=== PATIENT | male | born 1960 | race Caucasian/White ===

== ENCOUNTER 2016-06-30 14:49 | Inpatient (IN) ==
[2016-06-30] MEDS ORDERED: NALOXONE 0.4 MG/ML VIAL IV STA (15:18)
[2016-06-30] MEDS ORDERED: NALOXONE 0.4 MG/ML VIAL ONE (15:21)
--- NOTE | 2016-06-30 15:47 | XRay Report ---
XR chest 1V portable Indication: Cough Comparison: 27 September 2012 Findings: The heart and mediastinum are within normal limits in size and configuration with cardiac surgery changes. The pulmonary vascularity is normal in caliber. No lung infiltrates, effusions, pneumothorax or other abnormality is demonstrated. Impression: No acute cardiopulmonary disease. PROCEDURE INTERPRETED AT [facility] DEPARTMENT OF RADIOLOGY Final Report Signed by: Dr. Talon Byrnes
--- NOTE | 2016-06-30 15:47 | Emergency Department Note ---
Rohit Mueller Gwan, am scribing for, and in the presence of, Gasper Martinez MD 15:26 . Michelle Mueller James D, MD, personally performed the services described in this documentation, ascribed by Dominga Bee in my presence, and it is both accurate and complete [id number] . Arrival - Arrival Chief Complaint: Overdose Stated Complaint: overdose ED Nursing Triage Note: Brought in by EMS c/o altered LOC r/t possible overdose. Patient had #120 Oxycodone filled on 06/22/16, 22 pills left in bottle today. Home health nurse reports that patient had 40 pills yesterday. Patient has also taken an unknown amount of Valium. Awake, but drowsy. Mode of Arrival: Stretcher Source: EMS, Old Records Reviewed, RN Notes Reviewed - History of Present Illness HPI Narrative: Patient is a 56 y/o male who presents to the ED via EMS for further evaluation of drug overdose. Patient was last seen in ED 06/28/2016 for similar reason. Last visit notes that pt is being followed by pain management physician Dr. Mccarty in [place]. Nurses report that pt has 120 Oxycodone filled on 2016 and today he has 24 pills left in a bottle that originally had 60 pills. Home health nurse reports that pt has also been taking unknown amount of Valium. During exam pt is lethargic but awake. Pt has a PMHx of anxiety Disorder , brain aneurysm, seizures, CVA, dyslipidemia and valve replacement. Allergies/Adverse Reactions: Allergies Allergy/AdvReac Type Severity Reaction Status Date / Time Cyclobenzaprine Allergy ITCHING Verified 10/28/14 19:39 [From Flexeril] hydroxyzine [From Vistaril] Allergy Unknown/Unable Verified 06/28/16 14:53 to obtain ketorolac [From Toradol] Allergy ITCHING Verified 10/28/14 19:39 Home Medications: Home Medications Medication Instructions Recorded Confirmed Type tiZANidine [Zanaflex] 4 mg PO Q12HR PRN 10/28/14 06/30/16 History Atorvastatin Calcium [Atorvastatin 80 mg PO QPM 06/30/16 06/30/16 History Calcium] Buspirone HCl 10 mg PO BID 06/30/16 06/30/16 History Carvedilol [Coreg] 25 mg PO BID 06/30/16 06/30/16 History Oxycodone HCl 20 mg PO Q6HR 06/30/16 06/30/16 History Phenytoin Sodium Extended 100 mg PO BID 06/30/16 06/30/16 History [Phenytoin Sodium Extended] Topiramate [Topiramate] 200 mg PO BID 06/30/16 06/30/16 History Valsartan 160 mg PO DAILY 06/30/16 06/30/16 History lamoTRIgine [Lamotrigine Tab] 50 mg PO BID 06/30/16 06/30/16 History Review of System - Review of System ROS unobtainable: due to mental status Medical,Surgical,& Family Hx - Medical History Cardio: History of: Cardiac Dysrhythmia (AFIB), Hypertension, Valvular Heart Disease (aorta valve replaced) Psychological: History of: Anxiety Disorders Neurology: History of: Brain Aneurysm, Cerebrovascular Accident, Seizures Endocrine: History of: Dyslipidemia - Surgical History Cardiac Surgeries: Sugical HX of: Cardiac Surgery (valve replacement) Neurologic Surgeries: Surgical HX of: Brain Aneurysm - Social History Smoking Status: Smoker, status unknown Frequency of Alcohol Use: None Type of Drug Use: None Exam Physical Examination: GENERAL: This is a ill-appearing lethargic white male in no apparent distress. VITAL SIGNS: HEENT: Head is normocephalic and atraumatic. Pupils are equally round and reactive to light. Extraocular movement are intact. Oropharynx is benign with moist mucous membranes. NECK: Neck is soft and supple without tenderness. There are no masses. There is no lymphadenopathy. LUNGS: Lungs are clear to auscultation bilaterally. Chest rises symmetrically. There is no chest wall tenderness. CV: Heart is regular rate and rhythm without murmurs, rubs, or gallops. ABDOMEN: Abdomen is soft, non-tender to palpation. There are no abnormal masses palpated. There is no organomegaly. Bowel sounds are present and active. SKIN: Skin is warm and dry. No rash. EXTREMITIES: Patient has full range of motion without tenderness. There is no pedal edema. NEUROLOGIC: Awake and lethargic. Cranial nerves II through XII are grossly intact. There are no motorsensory deficits. PSYCHIATRIC: Normal affect. Normal mood. Vital Signs: Vital Signs Temperature 98.4 F 07/01/16 07:00 Pulse Rate 55 L 07/01/16 08:00 Respiratory Rate 14 05/11/17 08:00 Blood Pressure 99/58 07/01/16 08:00 O2 Sat by Pulse Oximetry 97 07/01/16 08:00 Course Course Narrative: Patient was given 2 Amps of Narcan IV upon arrival to the emergency department and immediately increased his O2 sat and began talking and cursing. - Consultations Consultation #1: Discussed with hospitalist. Patient was admitted to their service. Time: 16:50 Results - Labs CBC & BMP: 07/01/16 07:28 07/01/16 07:28 Lab Results: I have reviewed the patients labs Labs: Laboratory Tests 06/30/16 06/30/16 06/30/16 15:17 16:38 16:38 WBC 9.4 Hgb 15.9 Hct 49.2 Plt Count 225 ABG pH 7.302 L ABG pCO2 47.5 ABG pO2 61.4 L ABG O2 Saturation 90.3 L Sodium 143 Potassium 4.4 Chloride 107 Carbon Dioxide 28 Anion Gap 12.4 BUN 25 H Creatinine 2.30 H Glucose 110 H Urine pH Ur Specific [place] Urine RBC Urine WBC Urine Opiates Screen Acetaminophen Ur Barbiturates Screen Phenytoin Ur Phencyclidine Scrn U Amphetamine/Methamph U Benzodiazepines Scrn U Cocaine Metab Screen U Cannabinoids Screen 06/30/16 06/30/16 06/30/16 16:38 16:56 16:56 WBC Hgb Hct Plt Count ABG pH ABG pCO2 ABG pO2 ABG O2 Saturation Sodium Potassium Chloride Carbon Dioxide Anion Gap BUN Creatinine Glucose Urine pH 5.0 Ur Specific [place] 1.018 Urine RBC 16 Urine WBC 304 Urine Opiates Screen Positive H Acetaminophen < 2.0 L Ur Barbiturates Screen Negative Phenytoin 1.4 L Ur Phencyclidine Scrn Negative U Amphetamine/Methamph Negative U Benzodiazepines Scrn Positive H U Cocaine Metab Screen Negative U Cannabinoids Screen Negative Only labs from 06/30/2016 are to be considered for the purposes of this note. Labs from any other date have been entered in this note automatically by the electronic medical record. - Diagnostic Findings Procedure: Chest x-ray: report reviewed by me, image reviewed by me (No acute cardiopulmonary disease. Old median sternotomy.), CT: image reviewed by me, report reviewed by me (CT head: No acute interval change. Patient does have an area of encephalomalacia involving the right parietal occipital area.) Disposition Clinical Impression: Oxycodone overdose, Seizure disorder, Prior craniotomy with AVM, Noncompliance with Dilantin Case discussed with: patient Disposition: Still a Patient Condition: Stable Time of Disposition: 16:31
--- NOTE | 2016-06-30 16:19 | CT Report ---
CT brain Indication: Altered mental status Comparison: 28 Jun 2016 Technique: Axial CT imaging of the brain is performed without contrast with 3 mm increments. Findings: No evidence of hemorrhage, mass mass effect midline shift or acute infarct seen. There is moderate to severe diffuse cerebral atrophy. There are areas of decreased density seen within the white matter. More focal decreased density and volume loss is seen involving the majority of the right parietal temporal and occipital lobes similar to previous study. Multiple metallic densities are present in the medial right occipital lobe area from previous vascular surgeries. Otherwise the brain parenchyma attenuation and differentiation appears within normal limits. The ventricles and cisterns are normal in caliber. Craniotomy changes are present in the right occipital area similar to previous. No other cranial or skull base abnormality is identified. Impression: No evidence of acute process or interval change. This CT exam was performed using one or more the following dose reduction techniques: Automated exposure control, adjustment of the MA and/or KV according to patient size, or use of iterative reconstruction technique. PROCEDURE INTERPRETED AT [facility] DEPARTMENT OF RADIOLOGY Final Report Signed by: Dr. Talon Byrnes
[2016-06-30 16:46] LABS: Basophils % 0.3 % (0.0-0.8); Eosinophils # 0.3 10*3/uL (0.0-0.87); Eosinophils % 3.5 % (0.00-10.9); Hematocrit 49.2 VOL% (42.0-52.0); Hemoglobin 15.9 GM/DL (14.0-18.0); Immature Granulocytes % 0.2 %; Immature Granulocytes Absolute 0.02 #; Lymphocytes % 10.3 % (21.2-54.2); Mean Corpuscular HGB Conc 32.3 GM/DL (32-36); Mean Corpuscular Hemoglobin 30 PG (27-34); Mean Corpuscular Volume 92.8 FL (87-102); Mean Platelet Volume 11.1 FL (9.6-12.0); Monocytes # 0.3 10*3/uL (0.11-0.8); Monocytes % 3.5 % (1.7-12.7); Neutrophils # 7.7 10*3/uL (1.4-7.4); Neutrophils % 82.2 % (38.7-73.9); Platelet Count 225 T/CUMM (130-400); Red Cell Distribution Width 13.6 % (9.3-17.3); White Blood Count 9.4 T/CUMM (4-12)
[2016-06-30] MEDS ORDERED: SODIUM CHLORIDE 0.9% 1,000 ML IV STA (16:50)
[2016-06-30 17:07] LABS: Acetaminophen < 2.0 UG/ML (10-30); Phenytoin (Dilantin) 1.4 UG/ML (10-20)
[2016-06-30 17:09] LABS: Albumin 3.8 G/DL (3.4-5.0); Bilirubin,Total 0.4 MG/DL (0.2-1.0); Calcium 9.5 MG/DL (8.5-10.1); Potassium 4.4 MMOL/L (3.5-5.1); Total Protein 7.4 G/DL (6.4-8.3)
[2016-06-30 17:22] LABS: Apearance,Urine CLOUDY (Clear); Bilirubin,Urine Negative (Negative); Blood, Urine Negative (Negative); Glucose,Urine (UA) Negative (Negative); Hyaline Casts,Urine 13 /LPF (0-3); Ketones,Urine 5 mg/dL (Negative); Mucus,Urine Occasional /LPF (Occasional); Nitrite,Urine Negative (Negative); Protein,Urine 30 MG/DL; RBC,Urine 16 /HPF (0-4); Squamous Epithelial Cell,Urine Occasional /HPF (0-10); Urine Specific Gravity 1.018 (1.001-1.035); Urine Urobilinogen < 2.0 EU/DL (0.2-1.0); WBC,Urine 304 /HPF (0-6)
[2016-06-30 17:23] LABS: Urine Color Dark yellow (Yellow)
[2016-06-30 17:25] LABS: Barbiturates Screen,Urine Negative (Negative); Benzodiazepines Screen,Urine Positive (Negative); Cannabinoid Screen,Urine Negative (Negative); Opiate Screen,Urine Positive (Negative); Phencyclidine Screen,Urine Negative (Negative)
--- NOTE | 2016-06-30 17:37 | Hospitalist History & Physical ---
Assessment and Plan (1) Acute kidney injury Status: Acute Current Visit: Yes (2) Dehydration Status: Acute Current Visit: Yes (3) Drug overdose Status: Acute Current Visit: No (4) Drug abuse Status: Acute Current Visit: No (5) Seizure disorder Status: Acute Assessment and plan: Our plan for this patient will be admission to ICU. He needs close observation. I do not feel that this was a overdose associated with morning to harm self but although was unintentional overdose. Can continue home meds as appropriate and when patient is awake and alert enough he can be discharged after receiving IV fluids. Current Visit: Yes History of Present Illness Chief complaint: Decreased level of consciousness History of present illness: Mr. Whittington is a 56 year old male with past medical history significant for anxiety disorders brain aneurysm dyslipidemia hypertension valvular heart disease who presented to our ER for evaluation of unintentional drug overdose. Apparently patient is a pain clinic patient followed by Dr. Anastacio Jaimes. He reportedly had 120 oxycodone field on June 22. Today he has 24 pills left in the bottle that originally had 60. Home health nurse reports that he had been taking also unknown quantity of Valium. Patient had EMS called and was brought to our hospital he was lethargic and received 2 doses of Narcan. By the time I saw him he was awake. Patient was not real descriptive that what was going on other than saying he thought he was sick. To me he denied taking pain medicine. I was consulted to admit the patient through the emergency room. Home Medications Medication Instructions Recorded Confirmed Type Amitriptyline [Elavil] 25 mg PO BEDTIME 10/28/14 10/28/14 History Atorvastatin [Lipitor] 10 mg PO BEDTIME 10/28/14 10/28/14 History Butalbital/Acet/Caff 50-325-40 1 tablet PO Q6H PRN #20 tablet 10/28/14 Rx [Fioricet] Diazepam Tab [Valium Tab] 10 mg PO DAILY 10/28/14 10/28/14 History Diclofenac Sodium Tab [Voltaren] 50 mg PO TID 10/28/14 10/28/14 History Diltiazem Tab [Cardizem Tab] 90 mg PO BID 10/28/14 10/28/14 History FLUoxetine [PROzac] 10 mg PO DAILY 10/28/14 10/28/14 History Gabapentin Cap/Tab [Neurontin 300 mg PO DAILY 10/28/14 10/28/14 History Cap/Tab] HydrOXYzine PAMOATE CAP [Vistaril 25 mg PO TID 10/28/14 10/28/14 History Cap] Hydrocodone/Acetaminophen 1 tablet PO Q6-8H PRN 10/28/14 10/28/14 History [Hydrocodon-Acetaminophen 5-325] Lisinopril [Prinivil] 20 mg PO DAILY 10/28/14 10/28/14 History Phenytoin Sodium Extended 300 mg PO DAILY 10/28/14 10/28/14 History Topiramate [Topamax] 50 mg PO DAILY 10/28/14 10/28/14 History hydroCHLOROthiazide 25 mg PO DAILY 10/28/14 10/28/14 History [Hydrochlorothiazide] rOPINIRole [Requip] 4 mg PO BEDTIME 10/28/14 10/28/14 History tiZANidine [Zanaflex] 4 mg PO TID 10/28/14 10/28/14 History Allergies Allergy/AdvReac Type Severity Reaction Status Date / Time Cyclobenzaprine Allergy ITCHING Verified 10/28/14 19:39 [From Flexeril] hydroxyzine [From Vistaril] Allergy Unknown/Unable Verified 06/28/16 14:53 to obtain ketorolac [From Toradol] Allergy ITCHING Verified 10/28/14 19:39 Medical,Surgical,& Family Hx - Medical History Cardio: History of: Cardiac Dysrhythmia (AFIB), Hypertension, Valvular Heart Disease (aorta valve replaced) Psychological: History of: Anxiety Disorders Neurology: History of: Brain Aneurysm, Cerebrovascular Accident, Seizures Endocrine: History of: Dyslipidemia - Surgical History Cardiac Surgeries: Sugical HX of: Cardiac Surgery (valve replacement) Neurologic Surgeries: Surgical HX of: Brain Aneurysm - Social History Smoking Status: Smoker, status unknown Frequency of Alcohol Use: None Type of Drug Use: None ROS unobtainable: due to mental status Exam - Constitutional Vitals: Period Temp Pulse Resp BP Sys/Godinez Pulse Ox Last 24 Hr 98.2 F 89 22 126/76 89 General appearance: normal weight, disheveled, other (Continues trying to get off the gurney) - Head Head exam: Present: normal inspection - Eye Pupils: Present: constricted - ENT ENT exam: Present: normal exam - Neck Neck exam: Present: normal inspection - Respiratory Respiratory exam: Present: clear to auscultation bilaterally - Cardiovascular Cardiovascular exam: Present: regular rate and rhythm - GI/Abdominal GI/Abdominal exam: Present: normal bowel sounds - Extremities Exam Extremities exam: Present: normal inspection - Back Exam Back exam: Present: normal inspection - Neurological Exam Neurological exam: Present: altered - Psychiatric Psychiatric exam: Present: agitated - Skin Skin exam: Present: normal color Results - Labs CBC & BMP: 06/30/16 16:38 06/30/16 16:38
[2016-06-30] MEDS ORDERED: ACETAMINOPHEN 325 MG TABLET PO PRN (17:40)
[2016-06-30] MEDS ORDERED: ONDANSETRON 4 MG/2 ML VIAL IV PRN (17:40)
[2016-06-30] MEDS ORDERED: ALBUTEROL 2.5 MG/3 ML NEB RESP TX PRN (17:40)
[2016-06-30 17:48] LABS: ABG Base Excess -3.5 MMOL/L (-2.5-2.5); ABG HCO3 21.3 MMOL/L (20-26); ABG Oxygen Saturation 90.3 % (95-100); ABG PCO2 47.5 MM HG (35-48); ABG PH 7.302 (7.35-7.45); ABG PO2 61.4 MM HG (80-95); ABG TCO2 20.1 MMOL/L (23-27)
[2016-06-30] MEDS: ENOXAPARIN 40 MG/0.4 ML SYRINGE SUBCUT SCH (18:30)
[2016-06-30] MEDS: PANTOPRAZOLE 40 MG VIAL IV SCH (18:31)
[2016-06-30] MEDS: SODIUM CHLORIDE 0.45% 1,000 ML IV SCH (19:07)
[2016-06-30] MEDS: cefTRIAXone 1,000 MG in SODIUM CHLORIDE 0.9% 100 ML IV SCH (19:07)
[2016-06-30] MEDS ORDERED: tiZANidine 4 MG TABLET PO PRN (22:17)
[2016-06-30] MEDS ORDERED: SODIUM CHLORIDE 0.9% 500 ML IV ONE (23:12)
[2016-07-01] MEDS: SODIUM CHLORIDE 0.45% 1,000 ML IV SCH ×3 (02:03→18:02)
[2016-07-01] MEDS: HALOPERIDOL 5 MG/ML AMP IV PRN ×3 (03:21→22:40)
[2016-07-01 07:42] LABS: Basophils % 0.2 % (0.0-0.8); Eosinophils # 0.3 10*3/uL (0.0-0.87); Eosinophils % 2.1 % (0.00-10.9); Immature Granulocytes % 0.2 %; Immature Granulocytes Absolute 0.03 #; Lymphocytes # 1.8 10*3/uL (1.4-4.0); Lymphocytes % 13.5 % (21.2-54.2); Mean Corpuscular HGB Conc 32.9 GM/DL (32-36); Mean Corpuscular Hemoglobin 31 PG (27-34); Mean Corpuscular Volume 93.1 FL (87-102); Monocytes # 0.7 10*3/uL (0.11-0.8); Monocytes % 5.4 % (1.7-12.7); Neutrophils # 10.3 10*3/uL (1.4-7.4); Neutrophils % 78.6 % (38.7-73.9); Red Blood Count 4.51 MC/CUMM (3.8-5.5); Red Cell Distribution Width 13.5 % (9.3-17.3)
[2016-07-01 07:44] LABS: Hemoglobin 13.8 GM/DL (14.0-18.0); Platelet Count 171 T/CUMM (130-400); White Blood Count 13.1 T/CUMM (4-12)
[2016-07-01 08:06] LABS: Calcium 8.2 MG/DL (8.5-10.1); Osmolality,Calculated 289.7 MOS/KG (273-304); Potassium 4.2 MMOL/L (3.5-5.1)
--- NOTE | 2016-07-01 09:18 | EKG Report ---
Stationary ECG Study [facility] Test Date: 07/01/2016 9:18:29 AM Pat Name: AYLEEN REED Department: Room: 125 Gender: M Cma: ELSA : 1960 Requested by: Elinor Albert Order Number: [id number] Reading MD: KATHERINE BERNARD Intervals [place] Rate: 58 P: 27 LA: 181 QRS: -15 QRSD: 150 T: -23 QT: 473 QTc: 471 Interpretive Statements SINUS RHYTHM WITH FREQUENT VENTRICULAR PREMATURE COMPLEXES at 58 bpm INDETERMINATE AXIS RIGHT BUNDLE BRANCH BLOCK Electronically Signed On 07-05-16 16:00:56 CDT by KATHERINE BERNARD [email or web address]
[2016-07-01] MEDS: TOPIRAMATE 200 MG TABLET PO SCH ×2 (09:54→22:37)
[2016-07-01] MEDS: lamoTRIgine 100 MG TABLET PO SCH ×2 (09:54→22:37)
[2016-07-01] MEDS: busPIRone 10 MG TABLET PO SCH ×2 (09:54→22:36)
[2016-07-01] MEDS: PHENYTOIN ER 100 MG CAPSULE PO SCH ×2 (09:54→22:37)
[2016-07-01] MEDS: CARVEDILOL 25 MG TABLET PO SCH ×2 (09:55→22:36)
[2016-07-01] MEDS: VALSARTAN 160 MG TABLET PO SCH (09:56)
--- NOTE | 2016-07-01 12:49 | Hospitalist Progress Note ---
Assessment and Plan (1) Drug overdose Status: Acute Assessment and plan: I do not know if this was intentional or accidental at this point. Waiting for him to sober up enough to speak with me. We will have [place] see him when he is able to talk. Current Visit: No (2) UTI (urinary tract infection) Status: Acute Assessment and plan: Urine culture growing gram-positive cocci. Start daptomycin. Current Visit: Yes (3) Drug abuse Status: Acute Assessment and plan: Urine drug screen positive for opiates and benzos Current Visit: No (4) Seizure disorder Status: Acute Assessment and plan: Dilantin subtherapeutic 1000 mg IV and continue 100 mg 3 times a day Current Visit: Yes (5) Acute kidney injury Status: Acute Assessment and plan: Improving with hydration Current Visit: Yes (6) Dehydration Status: Acute Assessment and plan: Continue IV fluids Current Visit: Yes Hospitalist: Subjective Interval history: Patient still very lethargic and not really able to answer questions with [facility] right now. He should be more sober tomorrow. I am not sure if this was an attempt on his life or just drug abuse. Exam - Constitutional Vitals: Period Temp Pulse Resp BP Sys/Godinez Pulse Ox Last 24 Hr 98.2 F-100.5 F 55-89 10-22 77-126/47-79 88-100 Exam: Heart Rate-[RRR] Lungs-[CTAB] GI-[+bs soft, NT] Ext-[no edema] Neuro [Motor 5/5], confused and lethargic psych lethargic unable to assess General [no acute distress] Results - Labs CBC & BMP: 07/01/16 07:28 07/01/16 07:28 Lab Results: I have reviewed the past 24 hour labs Labs: Urine culture growing gram-positive cocci - Diagnostic Findings Procedure: Chest x-ray: report reviewed by me (Nothing acute), CT: report reviewed by me (Head CT shows extensive cerebral atrophy for a patient who is only 56.)
[2016-07-01] MEDS ORDERED: PHENYTOIN INJ 1,000 MG in SODIUM CHLORIDE 0.9% 100 ML IV ONE (14:00)
[2016-07-01] MEDS: NICOTINE 21 MG/24 HR PATCH TRANSDERM SCH (16:45)
[2016-07-01] MEDS ORDERED: PHENYTOIN ER 100 MG CAPSULE PO ONE (17:14)
[2016-07-01] MEDS: LORazepam 2 MG/1 ML VIAL IV PRN ×2 (17:43→22:40)
[2016-07-01] MEDS: ENOXAPARIN 40 MG/0.4 ML SYRINGE SUBCUT SCH (17:57)
[2016-07-01] MEDS: cefTRIAXone 1,000 MG in SODIUM CHLORIDE 0.9% 100 ML IV SCH (17:59)
[2016-07-01] MEDS: PANTOPRAZOLE 40 MG VIAL IV SCH (18:04)
[2016-07-01] MEDS: ATORVASTATIN 80 MG TABLET PO SCH (22:37)
[2016-07-02] MEDS: CARVEDILOL 25 MG TABLET PO SCH ×2 (09:41→21:26)
[2016-07-02] MEDS: VALSARTAN 160 MG TABLET PO SCH (09:41)
[2016-07-02] MEDS: lamoTRIgine 100 MG TABLET PO SCH ×2 (09:42→21:25)
[2016-07-02] MEDS: NICOTINE 21 MG/24 HR PATCH TRANSDERM SCH (09:42)
[2016-07-02] MEDS: busPIRone 10 MG TABLET PO SCH ×2 (09:42→21:26)
[2016-07-02] MEDS: PHENYTOIN ER 100 MG CAPSULE PO SCH ×2 (09:42→21:26)
[2016-07-02] MEDS: SODIUM CHLORIDE 0.45% 1,000 ML IV SCH ×2 (09:47→09:48)
[2016-07-02] MEDS: TOPIRAMATE 200 MG TABLET PO SCH ×2 (09:49→21:25)
--- NOTE | 2016-07-02 10:08 | XRay Report ---
XR hand 3V LT Indication: Hand swelling Comparison: None Technique: Frontal, lateral, and oblique views of the left hand Findings: Old fracture deformity of the distal fifth metacarpal. Moderate degenerative change of the interphalangeal joints. No acute fracture or dislocation demonstrated. Mild soft tissue swelling noted about the hand. IMPRESSION: As above. PROCEDURE INTERPRETED AT [facility] DEPARTMENT OF RADIOLOGY Final Report Signed by: Dr Smith Ramirez
--- NOTE | 2016-07-02 13:31 | Hospitalist Progress Note ---
Assessment and Plan (1) Drug overdose Status: Acute Assessment and plan: Nonintentional but has addiction issues. Current Visit: No (2) UTI (urinary tract infection) Status: Acute Assessment and plan: Urine culture growing gram-positive cocci most likely strep viridian. cont rocephin Current Visit: Yes (3) Seizure disorder Status: Acute Assessment and plan: cont dilantin recheck level in am Current Visit: Yes (4) Acute kidney injury Status: Acute Assessment and plan: improving, HL IVF Current Visit: Yes (5) Dehydration Status: Acute Assessment and plan: resolved Current Visit: Yes (6) Hypertension Status: Acute Assessment and plan: controlled Current Visit: Yes Hospitalist: Subjective Interval history: Patient has a history of abusing his meds but adamantly denies suicide. He also denies depression. We will transfer him up to floor. Would keep him 1 more night and then he can be discharged home tomorrow Exam - Constitutional Vitals: Period Temp Pulse Resp BP Sys/Godinez Pulse Ox Last 24 Hr 97.2 F-98.5 F 46-88 12-22 84-151/56-92 90-98 Exam: Heart Rate-[RRR] Lungs-[CTAB] GI-[+bs soft, NT] Ext-[no edema] Neuro [Motor 5/5], alert and oriented 2 psych normal mood and affect General [no acute distress] Results - Labs CBC & BMP: 07/01/16 07:28 07/01/16 07:28 Lab Results: I have reviewed the past 24 hour labs
[2016-07-02] MEDS: PANTOPRAZOLE 40 MG VIAL IV SCH (18:12)
[2016-07-02] MEDS: LORazepam 2 MG/1 ML VIAL IV PRN (18:13)
[2016-07-02] MEDS: cefTRIAXone 1,000 MG in SODIUM CHLORIDE 0.9% 100 ML IV SCH (18:16)
[2016-07-02] MEDS: ENOXAPARIN 40 MG/0.4 ML SYRINGE SUBCUT SCH (18:19)
[2016-07-02] MEDS: ATORVASTATIN 80 MG TABLET PO SCH (21:26)
[2016-07-02] MEDS: HALOPERIDOL 5 MG/ML AMP IV PRN (23:11)
[2016-07-03] MEDS: LORazepam 2 MG/1 ML VIAL IV PRN (00:42)
[2016-07-03] MEDS: busPIRone 10 MG TABLET PO SCH ×2 (09:50→20:54)
[2016-07-03] MEDS: CARVEDILOL 25 MG TABLET PO SCH ×2 (09:50→20:54)
[2016-07-03] MEDS: lamoTRIgine 100 MG TABLET PO SCH ×2 (09:50→20:53)
[2016-07-03] MEDS: VALSARTAN 160 MG TABLET PO SCH (09:50)
[2016-07-03] MEDS: PHENYTOIN ER 100 MG CAPSULE PO SCH ×2 (09:50→20:53)
[2016-07-03] MEDS: NICOTINE 21 MG/24 HR PATCH TRANSDERM SCH (09:51)
[2016-07-03] MEDS: TOPIRAMATE 200 MG TABLET PO SCH ×2 (13:41→20:54)
--- NOTE | 2016-07-03 15:35 | Hospitalist Progress Note ---
Assessment and Plan - Time spent with patient Time spent with patient: Greater than 30 minutes (1) Drug overdose Status: Acute Assessment and plan: Ask [facility] to evaluate. Non intentional. Current Visit: No (2) Hypertension Status: Acute Assessment and plan: Continue current management. Current Visit: Yes (3) Seizure disorder Status: Acute Assessment and plan: Continue current management. Current Visit: Yes (4) UTI (urinary tract infection) Status: Acute Assessment and plan: Continue current management. Current Visit: Yes (5) Weak Status: Acute Assessment and plan: SW to evaluate. PT. Current Visit: Yes Hospitalist: Subjective Interval history: Patient state he is weak. He apparently was urinating over himself today. Exam - Constitutional Vitals: Period Temp Pulse Resp BP Sys/Godinez Pulse Ox Last 24 Hr 97.4 F-98.8 F 50-76 18-22 143-154/80-110 95-97 General appearance: normal weight, no acute distress - Head Head exam: Present: normocephalic, atraumatic - Eye Eye exam: Present: EOMI Pupils: Present: SHIRIN - ENT ENT exam: Present: normal exam - Neck Neck exam: Present: normal inspection - Respiratory Respiratory exam: Present: clear to auscultation bilaterally. Absent: rhonchi, wheezes - Cardiovascular Cardiovascular exam: Present: regular rate and rhythm. Absent: gallop, rubs, systolic murmur - GI/Abdominal GI/Abdominal exam: Present: normal bowel sounds, soft. Absent: distended, firm , guarding, tenderness, rebound - Extremities Exam Extremities exam: Present: normal inspection. Absent: calf tenderness, edema Results - Labs CBC & BMP: 07/01/16 07:28 07/01/16 07:28 Lab Results: I have reviewed the past 24 hour labs
[2016-07-03] MEDS: PANTOPRAZOLE 40 MG VIAL IV SCH (17:41)
[2016-07-03] MEDS: ENOXAPARIN 40 MG/0.4 ML SYRINGE SUBCUT SCH (17:41)
[2016-07-03] MEDS: cefTRIAXone 1,000 MG in SODIUM CHLORIDE 0.9% 100 ML IV SCH (17:44)
[2016-07-03] MEDS: ATORVASTATIN 80 MG TABLET PO SCH (20:53)
[2016-07-04 06:38] LABS: Basophils % 0.7 % (0.0-0.8); Eosinophils # 0.4 10*3/uL (0.0-0.87); Eosinophils % 7.4 % (0.00-10.9); Hematocrit 44.2 VOL% (42.0-52.0); Hemoglobin 15.1 GM/DL (14.0-18.0); Immature Granulocytes % 0.3 %; Immature Granulocytes Absolute 0.02 #; Lymphocytes # 1.7 10*3/uL (1.4-4.0); Lymphocytes % 30.1 % (21.2-54.2); Mean Corpuscular HGB Conc 34.2 GM/DL (32-36); Mean Corpuscular Hemoglobin 30 PG (27-34); Mean Corpuscular Volume 88.2 FL (87-102); Mean Platelet Volume 12.1 FL (9.6-12.0); Monocytes # 0.5 10*3/uL (0.11-0.8); Monocytes % 9.3 % (1.7-12.7); Neutrophils % 52.2 % (38.7-73.9); Platelet Count 190 T/CUMM (130-400); Red Blood Count 5.01 MC/CUMM (3.8-5.5); Red Cell Distribution Width 13.5 % (9.3-17.3); White Blood Count 5.8 T/CUMM (4-12)
[2016-07-04 07:11] LABS: Calcium 8.8 MG/DL (8.5-10.1); Osmolality,Calculated 284.7 MOS/KG (273-304); Potassium 3.4 MMOL/L (3.5-5.1)
[2016-07-04] MEDS: VALSARTAN 160 MG TABLET PO SCH (09:29)
[2016-07-04] MEDS: busPIRone 10 MG TABLET PO SCH (09:29)
[2016-07-04] MEDS: PHENYTOIN ER 100 MG CAPSULE PO SCH (09:29)
[2016-07-04] MEDS: lamoTRIgine 100 MG TABLET PO SCH (09:29)
[2016-07-04] MEDS: CARVEDILOL 25 MG TABLET PO SCH (09:30)
[2016-07-04] MEDS: TOPIRAMATE 200 MG TABLET PO SCH (09:30)
[2016-07-04] MEDS: NICOTINE 21 MG/24 HR PATCH TRANSDERM SCH (09:31)
--- NOTE | 2016-07-04 11:16 | Discharge Summary ---
Hospital Course - Hospital Course Hospital Course: Mr. Carter was admitted to the intensive care unit after a potential drug overdose. Head CT in the ER was unremarkable. His drug overdose was unintentional and the patient was somewhat confused during his hospital stay however this rapidly resolved and by discharge was at baseline, alert and oriented 3. During this time his weakness improved and he was ambulating with no problems. By discharge she had met maximum benefit of hospitalization. I spoke to the patient regarding his pain medications and encouraged that he see his pain doctor to reconcile his medications. I encouraged that he remain off his pain medications and if need be slowly reintroduce what has been prescribed by his pain doctor. Patient understood. Of note he was found to have a urinary tract infection and initiated on antibiotics. Urine grew out Enterococcus faecalis that was sensitive to the antibiotics used and he will continue treatment as an outpatient for a total of 2 weeks. - Time spent with patient Time with patient DS: Greater than 30 minutes Diagnosis - Discharge Diagnosis (1) Drug overdose Status: Acute (2) Hypertension Status: Acute (3) Seizure disorder Status: Acute (4) UTI (urinary tract infection) Status: Acute (5) Weak Status: Acute Discharge Plan - Discharge Data Disposition: Disch To Home/Self Care Condition at Discharge: Stable Discharge Diet: advance to your usual diet Activity: resume usual activities as tolerated - Discharge Medications New Levofloxacin Tab [Levaquin Tab] 750 mg PO DAILY #10 tablet Continue tiZANidine [Zanaflex] 4 mg PO Q12HR PRN PRN Reason: Spasms Buspirone HCl 10 mg PO BID Carvedilol [Coreg] 25 mg PO BID Topiramate 200 mg PO BID Phenytoin Sodium Extended 100 mg PO BID Atorvastatin Calcium 80 mg PO QPM Valsartan 160 mg PO DAILY lamoTRIgine [Lamotrigine Tab] 50 mg PO BID Discontinued Oxycodone HCl 20 mg PO Q6HR - Follow Up or Referral - Forms/Instructions Exam - Constitutional Vitals: Period Temp Pulse Resp BP Sys/Godinez Pulse Ox Last 24 Hr 97.0 F-98.1 F 53-75 18-20 144-159/80-94 95-98 General appearance: normal weight, no acute distress - Head Head exam: Present: normal inspection, normocephalic, atraumatic - Eye Eye exam: Present: EOMI Pupils: Present: SHIRIN - ENT ENT exam: Present: normal exam - Neck Neck exam: Present: normal inspection - Respiratory Respiratory exam: Present: clear to auscultation bilaterally. Absent: accessory muscle use, prolonged expiratory phase, wheezes - Cardiovascular Cardiovascular exam: Present: regular rate and rhythm. Absent: bradycardia, irregular rhythm, systolic murmur - GI/Abdominal GI/Abdominal exam: Present: normal bowel sounds. Absent: ascites, hypoactive bowel sounds, tenderness - Extremities Exam Extremities exam: Present: normal inspection Discharge Results Labs on day of discharge: Labs from last 24 hours 07/04/16 07/04/16 06:09 06:09 WBC 5.8 D RBC 5.01 Hgb 15.1 Hct 44.2 MCV 88.2 MCH 30 MCHC 34.2 RDW 13.5 Plt Count 190 MPV 12.1 H Neut % (Auto) 52.2 Lymph % (Auto) 30.1 [place] % (Auto) 9.3 Eos % (Auto) 7.4 Baso % (Auto) 0.7 Neut # (Auto) 3.0 Lymph # (Auto) 1.7 [place] # (Auto) 0.5 Eos # (Auto) 0.4 Baso # (Auto) 0.0 Immature Gran % 0.3 Nucleated RBC % 0.0 Immature Gran # 0.02 Nucleated RBCs # 0.00 Sodium 145 Potassium 3.4 L Chloride 111 H Carbon Dioxide 24 Anion Gap 13.4 BUN 6 L Creatinine 0.80 GFR Calculation 111 BUN/Creatinine Ratio 7.00 Glucose 81 Calculated Osmolality 284.7 Calcium 8.8 DS: Provider Date of admission: 06/30/16 17:01 Primary care physician: . No PCP Attending physician on admission: Yossi Guillory MD Consults: 06/30/16 17:45 Consult to Case Mgmt/Social Srvs [CONS] Routine Reason for Case Mgmt/Social Srvs: Rehab Discharge Planning 07/02/16 08:29 Consult to Physician [CONS] Routine Comment: left hand swelling and pain Consulting Provider: Romulo Cortez When should Consulting Provider be notified: Now Person Notified: BLANCO CHU Date Notified: 07/02/16 Time Notified: 13:41 Consult Notification Comment: PT. WAS TRANSFERRED FROM UNIT @ 1330 AND ASKED THE RN WHY CONSULT WASNT CALLED AND SH STATED THEY DID NOT HAVE A UNIT SEC. SO THATS WHY IT WAS CALLED LATE RP 07/02/16 07/02/16 13:30 Consult to Physical Therapy [CONS] Routine Reason for Physical Therapy: Evaluate and Treat 07/03/16 14:37 Consult to Case Mgmt/Social Srvs [CONS] Routine Reason for Case Mgmt/Social Srvs: Psychiatric Management Discharging clinician: Virgen Addison MD Expected date of discharge: 07/04/16
[2016-07-04 14:02] VITALS: BP 163/98
== END 2016-07-04 15:09 | disposition home or self-care (01) | DRG 918 ==
LOC: EDBD → EDUNIT# → N.ED 14:49 → SUATTDRO 17:01 → N.EDINP 17:01 → N.CC 17:16 → N.2E 07-02 13:01
PROVIDERS: ADMIT Internal Medicine; ATTEND Internal Medicine